=== PATIENT | male | born 1960 | race African-American/Black ===

== ENCOUNTER → 2018-12-15 | Outpatient (CLI) | payer BC ==
[2016-02-26 21:00] VITALS: BP 178/93
[~2018-12-15] MED LIST: ALPR1TAB2 PO; HYDR-3135 PO
--- NOTE | 2018-12-16 07:55 | KCIC ---
EXAM: Lumbar spine MRI without contrast. HISTORY: Lower back pain and left lower extremity radiculopathy. TECHNIQUE: Multiplanar, multisequence magnetic resonance imaging of the lumbar spine was performed without contrast. COMPARISON: None. FINDINGS: There is mild lumbar scoliosis. There is grade 1 anterolisthesis of L4 on L5, measuring 4 mm. There is degenerative endplate remodeling with disc space narrowing and osteophytosis predominantly at L3-L4 and L5-S1. There is additional less significant endplate remodeling at the remainder of the lumbar levels. There are multiple endplate Schmorl's nodes predominantly at L3-L4 and L5-S1. There are few incidental osseous hemangiomas. There is no suspicious osseous lesion. There is no acute or subacute fracture. The conus terminates at L1-L2. At L1-L2, there is no stenosis. At L2-L3, there is a disc bulge and endplate remodeling. There is mild facet arthropathy. There is minimal bilateral foraminal stenosis. At L3-L4, there is a broad-based posterior central disc protrusion superimposed on a disc bulge and endplate osteophytosis. There is mild bilateral facet arthropathy. There is moderate right greater than left foraminal stenosis with abutment of the exiting L3 nerve roots. There is mild central canal stenosis. At L4-L5, there is a shallow left paracentral to extra foraminal disc protrusion superimposed on a disc bulge and endplate remodeling. There is [id number] right and moderate left facet arthropathy. There is grade 1 anterolisthesis. There is mild left foraminal stenosis with abutment of the exiting left L4 nerve root. There is mild central canal stenosis. At L5-S1, there is a posterior central disc protrusion superimposed on a diffuse disc bulge and endplate osteophytosis. There is moderate bilateral facet arthropathy. There is moderate to severe bilateral foraminal stenosis with effacement of the exiting L5 nerve roots. There is slight narrowing of the right lateral recess and abutment of the traversing right S1 nerve root. IMPRESSION: 1. Multilevel degenerative change throughout the lumbar spine, described in detail above. This results in minimal bilateral foraminal stenosis at L1-L2, moderate right greater than left foraminal stenosis with abutment of the exiting L3 nerve roots and mild central canal stenosis at L3-L4, mild left foraminal stenosis with abutment of the exiting left L4 nerve root and mild central canal stenosis at L4-L5, and moderate to severe bilateral foraminal stenosis with effacement of the exiting L5 nerve root and slight narrowing of the right lateral recess and abutment of the traversing right S1 nerve root at L5-S1. 2. Grade 1 anterolisthesis of L4 and L5 and mild lumbar scoliosis. Electronically signed by: Rosalinda Boudreaux MD (12/16/2018 7:52 AM) [id number]
== END | disposition home or self-care (01) ==
LOC: KCIC MRI 15:11
PROVIDERS: ATTEND Physical Medicine & Rehabilitation
DX: M48.07 Spinal stenosis, lumbosacral region (principal); M47.26 Other spondylosis with radiculopathy, lumbar region; M51.16 Intervertebral disc disorders with radiculopathy, lumbar region; M41.86 Other forms of scoliosis, lumbar region; M53.3 Sacrococcygeal disorders, not elsewhere classified; D18.09 Hemangioma of other sites; M12.88 Other specific arthropathies, not elsewhere classified, other specified site
CPT/HCPCS: 72148

== ENCOUNTER → 2019-01-31 | Outpatient (CLI) | payer BC ==
[2016-02-26 21:00] VITALS: BP 178/93
--- NOTE | 2019-01-31 13:44 | RAD ---
EXAM: Right hand, 3 views. HISTORY: Trauma. COMPARISON: None. FINDINGS: 3 views of the right hand are obtained. There is no acute fracture, dislocation or subluxation. IMPRESSION: No acute osseous finding. Electronically signed by: Rosalinda Boudreaux MD (01/31/2019 1:41 PM) [facility]
== END | disposition home or self-care (01) ==
LOC: RAD 13:18
PROVIDERS: ATTEND Physical Medicine & Rehabilitation
DX: M79.644 Pain in right finger(s) (principal)
CPT/HCPCS: 73130

== ENCOUNTER 2020-08-12 17:04 | Emergency (ER) | payer BC ==
[~2020-08-12] VITALS: Ht 170.2 cm; Wt 95.0 kg
[2020-08-12 17:33] VITALS: BP 126/68
[2020-08-12] MEDS ORDERED: AMOXICILLIN 250 MG CAPSULE. PO ONE (18:00)
[2020-08-12] MEDS ORDERED: HYDROcodone/APAP 5/325MG 1 TAB TABLET PO ONE (18:00)
[2020-08-12] MEDS ORDERED: AMOX875T PO (18:07)
[2020-08-12] MEDS ORDERED: HYDR-3164 PO (18:07)
--- NOTE | 2020-08-12 18:07 | PHYS DOC ---
Past Medical History Past Medical History: Diverticulitis, Glaucoma (BORIS MACHADO APRN) Past Surgical History: Other Additional Past Surgical Histo: COLO RESECTION (BORIS MACHADO APRN) Smoking Status: Current Some Day Smoker Alcohol Use: Rarely Drug Use: None Social History Narrative: rarely (BORIS MACHADO APRN) General Adult EDM: Chief Complaint: DENTAL PROBLEM HPI: HPI: Patient is a 60 year old male patient presenting to the ED today with 9 out of 10 left lower gum dental pain with swelling that began yesterday. Patient denies any fever or trismus. He states he was planning to see a dentist but the swelling has gotten worse overnight. (BORIS MACHADO APRN) Review of Systems: Review of Systems: Constitutional: Denies fever or chills. [] HENT: Reports left lower gum dental pain and swelling Musculoskeletal: Denies back pain or joint pain. [] Integument: Denies rash. [] Neurologic: Denies headache, focal weakness or sensory changes. [] Psychiatric: Denies depression or anxiety. [] (BORIS MACHADO APRN) Heart Score: Risk Factors: Risk Factors: DM, Current or recent (<one month) smoker, HTN, HLP, family history of CAD, obesity. Risk Scores: Score 0 - 3: 2.5% MACE over next 6 weeks - Discharge Home Score 4 - 6: 20.3% MACE over next 6 weeks - Admit for Clinical Observation Score 7 - 10: 72.7% MACE over next 6 weeks - Early Invasive Strategies (BORIS MACHADO APRN) Current Medications: Current Medications Medications (Trade) Dose Ordered Sig/[facility] Start Time Stop Time Status Last Admin Dose Admin Acetaminophen/ Hydrocodone Bitart (Lortab 5/325) 2 tab 1X ONCE 08/12/20 18:00 08/12/20 18:01 Amoxicillin (Amoxil) 500 mg 1X ONCE 08/12/20 18:00 08/12/20 18:01 (BORIS MACHADO APRN) Allergies: Allergies: Allergies Coded Allergies Type Severity Reaction Last Updated Verified naproxen Allergy Intermediate hives 04/24/16 Yes pregabalin Allergy Intermediate hives 04/24/16 Yes tramadol Allergy Intermediate hives 04/24/16 Yes (BORIS MACHADO APRN) Physical Exam: PE: Constitutional: Well developed, well nourished, no acute distress, non-toxic appearance. [] HENT: Normocephalic, atraumatic, bilateral external ears normal, oropharynx moist, no oral exudates, nose normal. [] Left lower cheek with mild swelling consistent of a dental abscess. Swelling noted along the gums of the left incisors and premolars. No fluctuance noted. Slight gum erythema. Skin: Warm, dry, no erythema, no rash. [] Back: No tenderness, no CVA tenderness. [] Extremities: No tenderness, no cyanosis, no clubbing, ROM intact, no edema. [] Neurologic: Alert and oriented X 3, normal motor function, normal sensory function, no focal deficits noted. [] Psychologic: Affect normal, judgement normal, mood normal. [] (BORIS MACHADO APRN) Current Patient Data: Vital Signs: Vital Signs Date Time Temp Pulse Resp B/P (MAP) Pulse Ox O2 Delivery O2 Flow Rate FiO2 08/12/20 17:33 98.7 90 16 126/68 (87) 98 Room Air 98.7 (BORIS MACHADO APRN) EKG: EKG: [] (BORIS MACHADO APRN) Radiology/Procedures: Radiology/Procedures: [] (BORIS MACHADO APRN) Course & Med Decision Making: Course & Med Decision Making Pertinent Labs and Imaging studies reviewed. (See chart for details) This is a 60-year-old male patient with a dental abscess. Discharged on amoxicillin. Follow-up with his own dentist in the next 2 weeks. (BORIS MACHADO APRN) Course & Med Decision Making I have reviewed the PA/MANAGER FRENCH's note and Plan of Care. I was available for consultation as needed during the patient's visit in the emergency department. I agree with the clinical impression, plans and disposition. (LUIS BIANCHI MD) Dragon Disclaimer: Dragon Disclaimer: This electronic medical record was generated, in whole or in part, using a voice recognition dictation system. (BORIS MACHADO APRN) Departure Departure Impression: Primary Impression: Dental abscess Disposition: 01 DC HOME SELF CARE/HOMELESS Condition: STABLE Referrals: NON,STAFF (PCP) Follow-up with your own dentist as soon as possible Patient Instructions: Dental Abscess Additional Instructions: You have a dental abscess. Take the prescribed medications as ordered especially antibiotics. Ensure you have complete the antibiotics. Follow-up with your own dentist as soon as you can Scripts Hydrocodone/Apap 5-325 (NORCO 5-325 TABLET) 1 Each Tablet 1 TAB PO Q6-8HRS PRN for PAIN, #6 TAB Prov: BORIS MACHADO APRN 08/12/20 Amoxicillin (AMOXICILLIN) 875 Mg Tablet 1 TAB PO BID, #20 TAB Prov: BORIS MACHADO APRN 08/12/20 BORIS MACHADO APRN Aug 12, 2020 18:07 LUIS BIANCHI MD Aug 12, 2020 19:39
== END 2020-08-12 18:36 | disposition home or self-care (01) ==
LOC: ER 17:04
DX: K04.7 Periapical abscess without sinus (principal); F17.200 Nicotine dependence, unspecified, uncomplicated; Z88.5 Allergy status to narcotic agent; Z88.6 Allergy status to analgesic agent; Z88.8 Allergy status to other drugs, medicaments and biological substances
CPT/HCPCS: 99283